=== PATIENT | female | born 1955 | race Caucasian/White ===

== ENCOUNTER 2016-04-04 17:52 | Inpatient (IN) | payer MEDICARE ==
[~2016-04-04] VITALS: Ht 162.6 cm; Wt 66.0 kg
[2016-04-04] MEDS ORDERED: ONDANSETRON 4 MG VIAL ONE ×2 (21:16→23:38)
[2016-04-04] MEDS ORDERED: DILAUDID 1 MG/ML AMP ONE ×2 (21:17→23:39)
[2016-04-04] MEDS ORDERED: SODIUM CHLORIDE 0.9% 1,000 ML ONE (21:17)
[2016-04-05] MEDS ORDERED: CEFTRIAXONE 1 GM VIAL ONE (01:19)
[2016-04-05] MEDS ORDERED: SODIUM CHLORIDE 0.9% 100 ML IV ONE (01:19)
[2016-04-05] MEDS ORDERED: DILAUDID 1 MG/ML AMP ONE (01:53)
[2016-04-05] MEDS ORDERED: SALINE FLUSH 10 ML FLUSH PRN (02:15)
[2016-04-05] MEDS ORDERED: ACETAMINOPHEN 325 MG TAB PO PRN (02:15)
[2016-04-05] MEDS: SODIUM CHLORIDE 0.9% 1,000 ML IV SCH (03:20)
[2016-04-05 03:25] VITALS: TEMP 96
[2016-04-05] MEDS: DILAUDID 1 MG/ML AMP IV PRN ×3 (03:36→12:04)
[2016-04-05] MEDS: ONDANSETRON 4 MG VIAL IV PRN ×4 (03:37→17:34)
[2016-04-05 04:04] VITALS: BP_SYST 110; RESP 16; TEMP 96
[2016-04-05 04:05] VITALS: Ht 162.6 cm; Wt 66.0 kg
[2016-04-05] MEDS: PHENAZOPYRIDINE 100 MG TAB PO SCH ×4 (04:39→21:01)
[2016-04-05] MEDS: SODIUM CHLORIDE 0.9% FLUSH BAG 500 ML IV SCH (05:39)
[2016-04-05] MEDS: LEVOTHYROXINE 0.05 MG TAB PO SCH (06:17)
[2016-04-05] MEDS: SALINE FLUSH 10 ML FLUSH SCH ×2 (08:10→21:01)
[2016-04-05] MEDS: PENTOSAN 100 MG CAP PO SCH ×3 (08:33→21:01)
[2016-04-05 08:46] VITALS: BP_SYST 110; RESP 16; TEMP 96.1
[2016-04-05] MEDS ORDERED: LEVOFLOXACIN 500 MG/100 ML 100 ML IV SCH (11:10)
[2016-04-05] MEDS: CEFTRIAXONE 1 GM in SODIUM CHLORIDE 0.9% 50 ML IV SCH (11:46)
[2016-04-05 12:10] VITALS: BP_SYST 124; RESP 16; TEMP 96.5
[2016-04-05 17:01] VITALS: BP_SYST 112; RESP 16; TEMP 96.5
[2016-04-05 20:16] VITALS: BP_SYST 110; RESP 16; TEMP 97.9
[2016-04-05] MEDS: Atorvastatin 20 MG TAB PO SCH (21:01)
[2016-04-06 00:05] VITALS: BP_SYST 156; RESP 16; TEMP 98.7
[2016-04-06] MEDS: SODIUM CHLORIDE 0.9% 1,000 ML IV SCH ×2 (02:49→14:33)
[2016-04-06 04:11] VITALS: BP_SYST 119; RESP 16; TEMP 98.4
[2016-04-06] MEDS: SODIUM CHLORIDE 0.9% FLUSH BAG 500 ML IV SCH (04:18)
[2016-04-06] MEDS: LEVOTHYROXINE 0.05 MG TAB PO SCH (06:37)
[2016-04-06 08:12] VITALS: BP_SYST 126; RESP 16; TEMP 97.7
[2016-04-06] MEDS ORDERED: **NOTE TO NURSE XX SCH (08:50)
[2016-04-06] MEDS ORDERED: NON-FORMULARY MEDICATION PO SCH (09:00)
[2016-04-06] MEDS: DOCUSATE SOD 100 MG CAP PO SCH ×2 (10:24→20:26)
[2016-04-06] MEDS: PHENAZOPYRIDINE 100 MG TAB PO SCH ×3 (10:24→20:26)
[2016-04-06] MEDS: PENTOSAN 100 MG CAP PO SCH ×3 (10:25→20:26)
[2016-04-06] MEDS: CHLORPHENIRAMINE 4 MG TAB PO SCH ×2 (10:25→20:26)
[2016-04-06] MEDS: SALINE FLUSH 10 ML FLUSH SCH ×2 (10:26→19:49)
[2016-04-06] MEDS: CEFTRIAXONE 1 GM in SODIUM CHLORIDE 0.9% 50 ML IV SCH (10:27)
[2016-04-06] MEDS: DILAUDID 1 MG/ML AMP IV PRN ×2 (12:15→16:30)
[2016-04-06] MEDS: ONDANSETRON 4 MG VIAL IV PRN (12:20)
[2016-04-06 13:00] VITALS: BP_SYST 110; RESP 16; TEMP 98.2
[2016-04-06 19:38] VITALS: BP_SYST 114; RESP 16; TEMP 98
[2016-04-06] MEDS: NON-FORMULARY MEDICATION PO SCH (20:26)
[2016-04-06] MEDS: Atorvastatin 20 MG TAB PO SCH (20:27)
[2016-04-06 23:27] VITALS: BP_SYST 108; RESP 16; TEMP 98.1
[2016-04-07] MEDS: SODIUM CHLORIDE 0.9% 1,000 ML IV SCH (03:04)
[2016-04-07 03:29] VITALS: BP_SYST 110; RESP 16; TEMP 98.1
[2016-04-07] MEDS: SODIUM CHLORIDE 0.9% FLUSH BAG 500 ML IV SCH (05:00)
[2016-04-07] MEDS: LEVOTHYROXINE 0.05 MG TAB PO SCH (06:07)
[2016-04-07] MEDS: CHLORPHENIRAMINE 4 MG TAB PO SCH (08:09)
[2016-04-07] MEDS: SALINE FLUSH 10 ML FLUSH SCH (08:09)
[2016-04-07] MEDS: CEFTRIAXONE 1 GM in SODIUM CHLORIDE 0.9% 50 ML IV SCH (08:09)
[2016-04-07] MEDS: DOCUSATE SOD 100 MG CAP PO SCH (08:10)
[2016-04-07] MEDS: PENTOSAN 100 MG CAP PO SCH (08:10)
[2016-04-07] MEDS: PHENAZOPYRIDINE 100 MG TAB PO SCH (08:10)
[2016-04-07] MEDS: NON-FORMULARY MEDICATION PO SCH (08:10)
[2016-04-07 08:38] VITALS: BP_SYST 126; RESP 16; TEMP 97.1
[2016-04-07 10:08] VITALS: BP_SYST 126; RESP 16; TEMP 97.1
== END 2016-04-07 10:44 | disposition home or self-care (01) | DRG 699 ==
LOC: ENRESERVTM → ENRESERVDT → ER 17:52 → ENPENDDIS 04-05 01:23 → EMR 04-05 01:23 → 5THW 04-05 03:18
PROVIDERS: ADMIT Internal Medicine; ATTEND Internal Medicine
DX: N99.89 Other postprocedural complications and disorders of genitourinary system (principal); N30.01 Acute cystitis with hematuria; B96.20 Unspecified Escherichia coli [E. coli] as the cause of diseases classified elsewhere; E03.9 Hypothyroidism, unspecified; E78.5 Hyperlipidemia, unspecified; R33.9 Retention of urine, unspecified; Z79.82 Long term (current) use of aspirin
CPT/HCPCS: 74176; 80048; 94799; 96361; 96365; 96375; 96376; 99232; 99238